=== PATIENT | male | born 1975 ===

== ENCOUNTER 2016-11-23 20:44 | Emergency (ER) | payer SELFPAY ==
[2016-11-23 21:04] VITALS: PULSE 88; TEMP 98.2; BMI 32.1
--- NOTE | 2016-11-23 21:12 | PDOC ---
History of Present Illness - General History Source: Patient Exam Limitations: No Limitations <Stella Ceballos - Last Filed: 11/23/16 21:12> - General History Source: Patient Exam Limitations: No Limitations <Ivanalma deliaAdri Vogtclaireeldon Garcia - Last Filed: 11/23/16 22:30> - General Chief Complaint: Palpitations Stated Complaint: PALPITATIONS Time Seen by Provider: 11/23/16 20:53 - History of Present Illness Initial Comments: 11/23/16 21:12 The patient is a 41 year old male, with significant past medical history of HTN , who presents to the emergency room complaining of chest tightness and palpitations starting 1 hour ago. 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 He notes that he became short of breath, got the sweats, and felt like his heart was racing. He notes some medial chest tightness. These symptoms have occurred before and is usually relieved when he sits down and rests. However, tonight the palpitations did not subside after he sat down. He states that he does not have any chest pain or palpitations at this time, but he does feel sluggish. Denies fever, chill, nausea, vomiting. Social history: tobacco use. No recreational drug use. PAST MEDICAL HISTORY: HTN PAST SURGICAL HISTORY: no significant history FAMILY HISTORY: no pertinent history SOCIAL HISTORY: Pt lives with family and is employed. MEDICATIONS: reviewed ALLERGIES: As per nursing notes Review of Systems General: No fevers or chills, no weakness, no weight loss HEENT: No change in vision. No sore throat, No ear pain CardioVascular: +chest tightness, palpitations, SOB, sweats. Respiratory:No cough, or wheezing. Gastrointestinal: no nausea, vomiting, diarrhea or constipation, No rectal bleeding Genitourinary: No dysuria, hematuria, or frequency Musculoskeletal: No joint or muscle pain or swelling Neurologic: No headache, vertigo, dizziness or loss of consciousness Psychiatric: nor depression Skin: No rashes or easy bruising Endocrine: no increased thirst or abnormal weight change Allergic: no skin or latex allergy All other systems reviewed and normal General: Anxious appearing. Well-nourished well-developed individual. HEENT: Throat: Normal, tonsils normal, no erythema or exudate Neck: Supple, no meningeal signs, no lymphadenopathy Eyes::Pupils equal reactive and round, extraocular motion intact Chest: Nontender to palpation Cardiac: S1-S2 normal, regular rate and rhythm, no murmurs rubs or gallops Respiratory: Lungs clear to auscultation bilateral Abdomen: Soft, nondistended, normal bowel sounds, nontender to palpation diffusely Extremities: Warm, dry, no cyanosis, clubbing, or edema Skin: No rashes Neuro: Alert and oriented x3, nonfocal exam, grossly intact, normal gait Psych: Anxious appearing. (Stella Ceballos) 11/23/16 22:26 A portion of this note was documented by scribe services under my direction. I have reviewed the details of the note, within reason, and agree with the documentation. The case summary and management plan written by me. This is a 41-year-old male who comes in complaining of palpitations and diaphoresis with some associated chest tightness tightness. Patient said he has a history of palpitations in the past with similar symptoms but never seen anybody and have them worked up patient said usually he sits down and they resolve on their own. This time he said they did not resolve as quickly so he came in for evaluation by the time he got here however they have completely resolved. Here in the emergency room patient had a normal EKG at a rate of 92 Patient's chest x-ray was normal Patient's troponin was negative Patient heart score is 1. Patient was discharged and told to follow-up with his primary care doctor. Patient was told He gets the palpitations that he should take his pulse to see how fast his heart is actually going. Return to the emergency department immediately with ANY new, persistent or worsening symptoms. Continue any medications as previously prescribed by your physician. You should follow up with your primary doctor as soon as possible regarding today's emergency department visit. . Please make sure your doctor reviews the results of your emergency evaluation. Thank you for coming to the Emergency Department today for your care. It was a pleasure to see you today. Please note that your evaluation is INCOMPLETE until you follow-up with your doctor. (Mikal Rodriguez I) Past History <Stella Ceballos - Last Filed: 11/23/16 21:12> - Past Medical History HTN: Yes - Psycho/Social/Smoking Cessation Hx Anxiety: No Suicidal Ideation: No Smoking History: Never smoked <Mikal Rodriguez I - Last Filed: 11/23/16 22:30> - Past Medical History Allergies/Adverse Reactions: Allergies Allergy/AdvReac Type Severity Reaction Status Date / Time No Known Drug Allergies Allergy Verified 11/23/16 20:59 METAL Allergy Uncoded 11/23/16 20:59 Home Medications: Ambulatory Orders Unobtainable [Unobtainable] 11/23/16 - Vital Signs Last Vital Signs Temp Pulse Resp BP Pulse Ox 98.2 F 88 21 155/97 98 11/23/16 20:45 11/23/16 21:30 11/23/16 21:30 11/23/16 21:30 11/23/16 21:30 Heart Score/ECG Review - History History: Slightly suspicious - Electrocardiogram EKG: Normal - Age Age: </= 45 - Risk Factors Risk Factors Heart Score: Yes Hx Hypertension Based on the list above the patient has:: 1-2 risk factors - Troponin Troponin: </= normal limit - Score Heart Score - Total: 1 <Mikal Rodriguez I - Last Filed: 11/23/16 22:30> ED Treatment Course - LABORATORY CBC & Chemistry Diagram: 11/23/16 21:00 11/23/16 21:00 <Mikal Rodriguez I - Last Filed: 11/23/16 22:30> - ADDITIONAL ORDERS Additional order review: Laboratory Results 11/23/16 11/23/16 21:00 21:00 Sodium 138 Potassium 3.5 Chloride 105 Carbon Dioxide 26 Anion Gap 7 L BUN 18 Creatinine 1.3 Creat Clearance w eGFR > 60 Random Glucose 128 H Calcium 9.0 Total Bilirubin 0.5 AST 26 ALT 28 Alkaline Phosphatase 80 Creatine Kinase 358 H Creatine Kinase Index 1.4 CK-MB (CK-2) 5.2 H Troponin I < 0.03 L Total Protein 7.2 Albumin 3.8 11/23/16 21:00 RBC 4.44 MCV 91.1 MCHC 33.8 RDW 12.5 MPV 7.5 Neutrophils % 73.0 Lymphocytes % 16.4 Monocytes % 9.4 Eosinophils % 0.7 Basophils % 0.5 - RADIOLOGY Radiology Studies Ordered: Category Date Time Status CHEST X-RAY PORTABLE* [RAD] Stat Radiology 11/23/16 21:04 Taken *DC/Admit/Observation/Transfer <Stella Ceballos - Last Filed: 11/23/16 21:12> - Discharge Dispostion Admit: No <JaymietonyStephanieeldon Radha - Last Filed: 11/23/16 22:30> Diagnosis at time of Disposition: Palpitations - Discharge Dispostion Disposition: HOME Condition at time of disposition: Stable - Patient Instructions Printed Discharge Instructions: DI for Palpitations Additional Instructions: Next time he develop these symptoms take her heart rate to see how fast it is. It is over 120 and persists for more than a few minutes you should come to the ER or follow-up with your primary care doctor. Return to the emergency department immediately with ANY new, persistent or worsening symptoms. Continue any medications as previously prescribed by your physician. You should follow up with your primary doctor as soon as possible regarding today's emergency department visit. . Please make sure your doctor reviews the results of your emergency evaluation. Thank you for coming to the Emergency Department today for your care. It was a pleasure to see you today. Please note that your evaluation is INCOMPLETE until you follow-up with your doctor.
[2016-11-23 21:38] LABS: BASOPHIL 0.5 % (0-2.0); EOSINOPHIL 0.7 % (0-4.5); MCH 30.8 pg (25.7-33.7); MCHC 33.8 g/dl (32.0-35.9); MEAN CELL VOLUME 91.1 fl (80-96); MEAN PLT VOLUME 7.5 fl (7.5-11.1); PLATELET COUNT 243 K/MM3 (134-434); RDW 12.5 % (11.9-15.9); WHITE BLOOD COUNT 10.6 K/mm3 (4.0-10.8)
[2016-11-23 21:45] LABS: ALBUMIN 3.8 g/dl (3.5-5.0); ALK PHOS 80 U/L (32-92); ANION GAP 7 (8-16); BILIRUBIN,TOTAL 0.5 mg/dl (0.2-1.0); CO2 26 mmol/L (22-28); CREATININE 1.3 mg/dl (0.6-1.3); GLUCOSE,RANDOM 128 mg/dl (74-106); SGOT/AST 26 U/L (10-42); SGPT/ALT 28 U/L (10-40); TOT PROT 7.2 g/dl (6.4-8.3)
[2016-11-23 21:46] LABS: CPK 358 IU/L (39-308)
[2016-11-23 21:53] VITALS: BP 155/97
[2016-11-23 21:55] LABS: TROPONIN I (DFP) < 0.03 ng/ml (0.03-0.50)
--- NOTE | 2016-11-24 09:00 | EKG ---
Test Reason : Blood Pressure : / mmHG Vent. Rate : 092 BPM Atrial Rate : 092 BPM P-R Int : 156 ms QRS Dur : 098 ms QT Int : 386 ms P-R-T Axes : 047 017 016 degrees QTc Int : 477 ms NORMAL SINUS RHYTHM NORMAL ECG NO PREVIOUS ECGS AVAILABLE Confirmed by JASEN ANDREWS MD ([id number]) on 11/24/2016 8:59:41 AM Referred By: Leeroy GRANGER Confirmed By:JASEN ANDREWS MD
== END 2016-11-23 22:40 | disposition home or self-care (01) ==
LOC: FER 20:44
DX: R00.2 Palpitations (principal); I10 Essential (primary) hypertension
CPT/HCPCS: 36415; 71010-TC; 80053; 82553; 84484; 85025; 93005; 99283-25